=== PATIENT | male | born 1995 | race Caucasian/White ===

== ENCOUNTER 2021-08-31 09:19 | Emergency (ER) | payer OTHER ==
[~2021-08-31] VITALS: Ht 172.7 cm; Wt 59.0 kg
--- NOTE | 2021-08-31 09:32 | NUR ---
[facility] OFFICERS FOR ABDOMINAL PAIN 07/18, NAUSEA AND VOMITING LAST FENTANYL USE WAS 2 DAYS AGO. THE PATIENT IS ALERT AND ORIENTED X3. IN ROOM AIR AND DENIES SOB. RESPIRATION REGULAR AND UNLABORED. WILL CONTINUE TO MONITOR THE PATIENT. [employer] OFFICERS AT THE BEDSIDE.
[2021-08-31] MEDS ORDERED: ONDANSETRON HCL/PF 4 MG/2 ML VIAL ONE (09:58)
[2021-08-31] MEDS ORDERED: KETOROLAC TROMETHAMINE INJ 30 MG/ML VIAL ONE (09:58)
[2021-08-31] MEDS: ONDANSETRON HCL/PF 4 MG/2 ML VIAL IV ONE (10:10)
[2021-08-31] MEDS: KETOROLAC TROMETHAMINE INJ 30 MG/ML VIAL IV ONE (10:11)
--- NOTE | 2021-08-31 10:46 | NUR ---
Patient discharged in stable condition with [employer] officers. Written and verbal after care instructions given. Patient and [employer] officers verbalized understanding of instruction.
[2021-08-31 10:47] VITALS: BP 131/75
== END 2021-08-31 10:48 ==
LOC: ER 09:31
DX: R11.0 Nausea (principal); M79.10 Myalgia, unspecified site; F11.10 Opioid abuse, uncomplicated; F31.9 Bipolar disorder, unspecified; Z60.2 Problems related to living alone
CPT/HCPCS: 96374; 96375; 99284; J1885; J2405